=== PATIENT | male | born 1955 | race Caucasian/White ===

== ENCOUNTER 2022-05-04 13:58 | Inpatient (IN) | payer OTHER ==
[~2022-05-04] VITALS: Ht 172.7 cm; Wt 78.7 kg
[~2022-05-04 13:58] MED LIST: 0.9% SODIUM CHLORIDE 10 ML VIAL IVP ONE; DEXAMETHASONE SOD PHOS 4 MG/ML VIAL IVP ONE; EPHEDrine SULFATE 50 MG/ML VIAL IM ONE; LIDOCAINE/PF 2% 5 ML VIAL IM ONE; ONDANSETRON HCL 4 MG/2 ML VIAL IVP ONE; PROPOFOL 1% 20 ML VIAL IVP ONE; ROCURONIUM BROMIDE 10 MG/ML 5 ML VIAL IVP ONE
[2022-05-04] MEDS ORDERED: SODIUM CHLORIDE 0.9% 250 ML IV ONE (15:00)
[2022-05-04] MEDS ORDERED: SODIUM CHLORIDE 0.9% 1,000 ML IV ONE (15:00)
[2022-05-04 15:08] LABS: COVID AG,FIA SOURCE NASOPHARYNGEAL
[2022-05-04 15:52] LABS: BASOPHILS % (AUTO) 0.5 % (0.0-2.0); EOSINOPHILS % (AUTO) 2.3 % (1.0-6.0); HEMATOCRIT 26.1 % (41-53); HEMOGLOBIN 8.4 g/dL (13.5-17.5); LYMPHOCYTES # (AUTO) 0.7 K/uL (1.0-4.8); LYMPHOCYTES % (AUTO) 16.8 % (22.0-44.0); MEAN CORPUSCULAR HEMOGLOBIN 29.8 pg (26.0-34.0); MEAN CORPUSCULAR HGB CONC 32.3 G/dL (31.0-37.0); MEAN CORPUSCULAR VOLUME 92 fL (80-100); MONOCYTES # (AUTO) 0.4 K/uL (0.1-1.0); MONOCYTES % (AUTO) 9.1 % (2.0-9.0); NEUTROPHILS # (AUTO) 3.1 K/uL (1.8-7.7); NEUTROPHILS % (AUTO) 71.3 % (40.0-70.0); PLATELET COUNT (AUTO) 254 K/uL (150-450); RED BLOOD CELL COUNT(AUTO) 2.83 MIL/uL (4.50-5.90); RED CELL DISTRIBUTION WIDTH 20.8 % (11.5-14.5)
[2022-05-04] MEDS ORDERED: VANCOMYCIN HCL 1 GM/VIAL ONE ×2 (15:57→16:30)
[2022-05-04] MEDS ORDERED: SODIUM CL IRRIG SOLN BAG 3,000 ML IRRIG ONE (15:58)
[2022-05-04 16:04] LABS: CALCIUM, TOTAL 7.6 mg/dL (8.8-10.5); CREATININE 3.14 mg/dL (0.60-1.30); POTASSIUM 3.9 mmol/L (3.5-5.1)
[2022-05-04 16:10] LABS: ALBUMIN 1.8 g/dL (3.4-5.0); BILIRUBIN,TOTAL 0.8 mg/dL (0.1-1.0); TOTAL PROTEIN, SERUM 5.5 g/dL (6.4-8.2)
[2022-05-04 16:12] LABS: LACTIC ACID 0.6 mmol/L (0.4-2.0)
[2022-05-04] MEDS ORDERED: MEPERIDINE-PF 25 MG/ML VIAL IVP PRN (16:30)
[2022-05-04] MEDS ORDERED: HYDROmorphone 2 MG/ML VIAL IVP PRN (16:30)
[2022-05-04] MEDS ORDERED: FentaNYL CITRATE PF 100 MCG/2 ML VIAL IVP PRN (16:30)
[2022-05-04 16:36] LABS: INR 1.1 (0.9-1.1); PROTHROMBIN TIME 12.1 SEC (9.4-11.6)
[2022-05-04] MEDS ORDERED: SODIUM CHLORIDE 0.9% 1,000 ML ONE ×3 (17:45→18:13)
[2022-05-04 18:22] VITALS: BP 112/58
[2022-05-04 18:30] VITALS: BP 112/58
[2022-05-04 18:44] VITALS: BP 120/55
[2022-05-04 18:50] VITALS: BP 116/58
[2022-05-04 19:00] VITALS: BP 115/58
[2022-05-04 20:00] VITALS: BP 97/34
[2022-05-04] MEDS ORDERED: RINGERS SOLUTION,LACTATED 1,000 ML IV SCH (20:00)
[2022-05-04] MEDS: OXYGEN THERAPY IH SCH (20:00)
[2022-05-04] MEDS ORDERED: ONDANSETRON HCL 4 MG/2 ML VIAL IVP PRN (20:30)
[2022-05-04] MEDS ORDERED: RINGERS SOLUTION,LACTATED 250 ML IV ONE (20:30)
[2022-05-04] MEDS ORDERED: ASPI81TA87 PO (20:35)
[2022-05-04] MEDS ORDERED: ATOR20TA86 PO (20:35)
[2022-05-04] MEDS ORDERED: METO25 PO (20:35)
[2022-05-04] MEDS ORDERED: NOREPINEPHRINE 8 MG/D5%-WATER 250 ML IV PRN (20:45)
[2022-05-04] MEDS: ACETAMINOPHEN 325 MG TABLET PO PRN (21:27)
[2022-05-04] MEDS: ATORVASTATIN CALCIUM 20 MG TABLET PO SCH (21:27)
[2022-05-04] MEDS: CeFAZolin 2 GM/DEXTROSE 50 ML IV SCH (21:31)
[2022-05-04] MEDS: INSULIN GLARGINE,HUM.REC.ANLOG 100 UNITS/ML SQ SCH (22:02)
[2022-05-04] MEDS: INSULIN LISPRO 100 UNITS/ML SQ PRN (22:02)
[2022-05-04 22:10] LABS: BASOPHILS % (AUTO) 0.1 % (0.0-2.0); EOSINOPHILS % (AUTO) 0.3 % (1.0-6.0); HEMOGLOBIN 9.9 g/dL (13.5-17.5); LYMPHOCYTES # (AUTO) 0.5 K/uL (1.0-4.8); LYMPHOCYTES % (AUTO) 7.4 % (22.0-44.0); MEAN CORPUSCULAR VOLUME 91 fL (80-100); MONOCYTES # (AUTO) 0.2 K/uL (0.1-1.0); MONOCYTES % (AUTO) 2.9 % (2.0-9.0); NEUTROPHILS # (AUTO) 5.9 K/uL (1.8-7.7); PLATELET COUNT (AUTO) 247 K/uL (150-450); RED BLOOD CELL COUNT(AUTO) 3.29 MIL/uL (4.50-5.90); RED CELL DISTRIBUTION WIDTH 19.1 % (11.5-14.5)
[2022-05-04 22:12] LABS: NEUTROPHILS % (AUTO) 89.3 % (40.0-70.0)
[2022-05-04 22:21] LABS: INR 1.3 (0.9-1.1); PROTHROMBIN TIME 13.3 SEC (9.4-11.6)
[2022-05-04 22:23] LABS: ALBUMIN 1.6 g/dL (3.4-5.0); BILIRUBIN,TOTAL 1.2 mg/dL (0.1-1.0); CALCIUM, TOTAL 7.4 mg/dL (8.8-10.5); CREATININE 3.19 mg/dL (0.60-1.30); POTASSIUM 4.3 mmol/L (3.5-5.1); TOTAL PROTEIN, SERUM 5.3 g/dL (6.4-8.2)
[2022-05-04 23:01] LABS: GLUCOSE,POINT OF CARE 224 MG/DL (70-110)
[2022-05-05] VITALS (7 sets, daily range): BP systolic 110–144; BP diastolic 45–77
[2022-05-05] MEDS: HEPARIN SODIUM,PORCINE 5,000 UNITS/ML VIAL SQ SCH ×4 (00:26→23:05)
[2022-05-05] MEDS: ACETAMINOPHEN 325 MG TABLET PO PRN ×3 (04:16→20:42)
[2022-05-05 05:29] LABS: BASOPHILS % (AUTO) 0.1 % (0.0-2.0); EOSINOPHILS % (AUTO) 0 % (1.0-6.0); HEMATOCRIT 29.7 % (41-53); LYMPHOCYTES # (AUTO) 0.9 K/uL (1.0-4.8); LYMPHOCYTES % (AUTO) 10.6 % (22.0-44.0); MEAN CORPUSCULAR HEMOGLOBIN 30.2 pg (26.0-34.0); MEAN CORPUSCULAR HGB CONC 33.7 G/dL (31.0-37.0); MEAN CORPUSCULAR VOLUME 90 fL (80-100); MONOCYTES # (AUTO) 0.5 K/uL (0.1-1.0); MONOCYTES % (AUTO) 6.8 % (2.0-9.0); NEUTROPHILS # (AUTO) 6.6 K/uL (1.8-7.7); NEUTROPHILS % (AUTO) 82.5 % (40.0-70.0); PLATELET COUNT (AUTO) 324 K/uL (150-450); RED BLOOD CELL COUNT(AUTO) 3.31 MIL/uL (4.50-5.90); RED CELL DISTRIBUTION WIDTH 19.8 % (11.5-14.5)
[2022-05-05 05:47] LABS: CALCIUM, TOTAL 7.4 mg/dL (8.8-10.5); CREATININE 3.24 mg/dL (0.60-1.30); MAGNESIUM 1.7 mg/dL (1.80-2.40); PHOSPHORUS 6.1 mg/dL (2.5-4.9); POTASSIUM 4.1 mmol/L (3.5-5.1)
[2022-05-05] MEDS: INSULIN LISPRO 100 UNITS/ML SQ PRN ×4 (06:36→20:50)
[2022-05-05] MEDS: OXYGEN THERAPY IH SCH ×2 (08:00→20:16)
[2022-05-05] MEDS: ASPIRIN 81 MG DR TABLET PO SCH (09:04)
[2022-05-05] MEDS: CeFAZolin 2 GM/DEXTROSE 50 ML IV SCH ×2 (09:04→22:52)
[2022-05-05] MEDS: SODIUM CHLORIDE 0.9% 1,000 ML IV SCH (11:28)
[2022-05-05] MEDS ORDERED: MAGNESIUM OXIDE 400 MG TABLET PO ONE (16:30)
[2022-05-05 18:31] LABS: GLUCOSE,POINT OF CARE 209 MG/DL (70-110)
[2022-05-05 19:00] LABS: GLUCOSE,POINT OF CARE 207 MG/DL (70-110)
[2022-05-05 19:01] LABS: GLUCOSE,POINT OF CARE 214 MG/DL (70-110)
[2022-05-05] MEDS: METOPROLOL TARTRATE 25 MG TABLET PO SCH (20:42)
[2022-05-05] MEDS: ATORVASTATIN CALCIUM 20 MG TABLET PO SCH (20:42)
[2022-05-05] MEDS: INSULIN GLARGINE,HUM.REC.ANLOG 100 UNITS/ML SQ SCH (20:46)
[2022-05-05 21:51] LABS: GLUCOMETER DEV NAME(LOC) 5S.2B; GLUCOSE,POINT OF CARE 201 MG/DL (70-110)
[2022-05-05] MEDS ORDERED: HALOPERIDOL LACTATE 5 MG/ML VIAL IM ONE (23:00)
[2022-05-05] MEDS ORDERED: DiphenhydrAMINE HCL 50 MG/ML VIAL IVP ONE (23:00)
[2022-05-06] VITALS (13 sets, daily range): BP systolic 109–155; BP diastolic 62–88
[2022-05-06] MEDS: ACETAMINOPHEN 325 MG TABLET PO PRN ×3 (02:37→22:27)
[2022-05-06] MEDS ORDERED: DiphenhydrAMINE HCL 50 MG/ML VIAL IVP ONE (03:45)
[2022-05-06 04:36] LABS: APPEARANCE,URINE HAZY (CLEAR); BILIRUBIN,URINE NEGATIVE (NEGATIVE); GLUCOSE, URINE (UA) 70-100 mg/dL (NEGATIVE); KETONES,URINE NEGATIVE (NEGATIVE); LEUKOCYTE ESTERASE ,URINE MODERATE (NEGATIVE); NITRATE,URINE NEGATIVE (NEGATIVE); OCCULT BLOOD,URINE SMALL (NEGATIVE); PROTEIN,URINE 100-200,SEE CONFIRM mg/dL (NEGATIVE); SPECIFIC GRAVITIY, URINE 1.018 (1.003-1.030); UROBILINOGEN,URINE <=1.0 mg/dL (<=1.0)
[2022-05-06 04:41] LABS: CREATININE,URINE RANDOM 89.5 mg/dL (30.0-125.0); PROTEIN,URINE RANDOM 147 mg/dL (0-11.9); SODIUM,URINE RANDOM 20 mmol/l (20-110); UREA NITROGEN,URINE RANDOM 404 mg/dL (350-1000)
[2022-05-06 04:52] LABS: BACTERIA,URINE Few /HPF (None Seen); SULFOSALICYLIC ACID,URINE 2+ (Negative)
[2022-05-06 04:53] LABS: SQUAMOUS EPITHELIAL CELL,UR Few /LPF (None Seen)
[2022-05-06 06:47] LABS: BASOPHILS % (AUTO) 0.3 % (0.0-2.0); EOSINOPHILS % (AUTO) 1.9 % (1.0-6.0); LYMPHOCYTES # (AUTO) 0.8 K/uL (1.0-4.8); LYMPHOCYTES % (AUTO) 13.9 % (22.0-44.0); MEAN CORPUSCULAR HEMOGLOBIN 30.2 pg (26.0-34.0); MEAN CORPUSCULAR VOLUME 89 fL (80-100); MONOCYTES # (AUTO) 0.5 K/uL (0.1-1.0); MONOCYTES % (AUTO) 8.7 % (2.0-9.0); NEUTROPHILS # (AUTO) 4.4 K/uL (1.8-7.7); NEUTROPHILS % (AUTO) 75.2 % (40.0-70.0); PLATELET COUNT (AUTO) 227 K/uL (150-450); RED BLOOD CELL COUNT(AUTO) 2.27 MIL/uL (4.50-5.90); RED CELL DISTRIBUTION WIDTH 19.8 % (11.5-14.5)
[2022-05-06 06:55] LABS: CALCIUM, TOTAL 7.5 mg/dL (8.8-10.5); CREATININE 3.36 mg/dL (0.60-1.30); POTASSIUM 3.8 mmol/L (3.5-5.1)
[2022-05-06 07:06] LABS: HEMOGLOBIN 6.9 g/dL (13.5-17.5)
[2022-05-06 07:07] LABS: HEMATOCRIT 20.2 % (41-53)
[2022-05-06 07:11] LABS: GLUCOMETER DEV NAME(LOC) 5S.2B; GLUCOSE,POINT OF CARE 120 MG/DL (70-110)
[2022-05-06] MEDS: HEPARIN SODIUM,PORCINE 5,000 UNITS/ML VIAL SQ SCH (08:00)
[2022-05-06] MEDS: SODIUM CHLORIDE 0.9% 1,000 ML IV SCH (09:58)
[2022-05-06] MEDS: ASPIRIN 81 MG DR TABLET PO SCH (09:59)
[2022-05-06] MEDS: METOPROLOL TARTRATE 25 MG TABLET PO SCH ×2 (09:59→22:29)
[2022-05-06] MEDS: OXYGEN THERAPY IH SCH ×2 (09:59→19:57)
[2022-05-06] MEDS: CeFAZolin 2 GM/DEXTROSE 50 ML IV SCH ×2 (10:43→22:27)
[2022-05-06] MEDS ORDERED: SODIUM CHLORIDE 0.9% 500 ML IV ONE (11:20)
[2022-05-06 12:42] LABS: BASOPHILS % (AUTO) 0.3 % (0.0-2.0); EOSINOPHILS % (AUTO) 2.7 % (1.0-6.0); LYMPHOCYTES # (AUTO) 0.8 K/uL (1.0-4.8); LYMPHOCYTES % (AUTO) 14.5 % (22.0-44.0); MEAN CORPUSCULAR HEMOGLOBIN 30.2 pg (26.0-34.0); MEAN CORPUSCULAR HGB CONC 33.7 G/dL (31.0-37.0); MEAN CORPUSCULAR VOLUME 90 fL (80-100); MONOCYTES # (AUTO) 0.4 K/uL (0.1-1.0); MONOCYTES % (AUTO) 7.6 % (2.0-9.0); NEUTROPHILS # (AUTO) 3.9 K/uL (1.8-7.7); NEUTROPHILS % (AUTO) 74.9 % (40.0-70.0); PLATELET COUNT (AUTO) 240 K/uL (150-450); RED BLOOD CELL COUNT(AUTO) 2.29 MIL/uL (4.50-5.90); RED CELL DISTRIBUTION WIDTH 19.8 % (11.5-14.5)
[2022-05-06] MEDS: INSULIN LISPRO 100 UNITS/ML SQ PRN ×3 (12:42→22:26)
[2022-05-06 12:46] LABS: HEMATOCRIT 20.5 % (41-53); HEMOGLOBIN 6.9 g/dL (13.5-17.5)
[2022-05-06 21:02] LABS: GLUCOMETER DEV NAME(LOC) 5S.2B; GLUCOSE,POINT OF CARE 190 MG/DL (70-110)
[2022-05-06 21:02] LABS: GLUCOMETER DEV NAME(LOC) 5S.2B; GLUCOSE,POINT OF CARE 241 MG/DL (70-110)
[2022-05-06] MEDS: INSULIN GLARGINE,HUM.REC.ANLOG 100 UNITS/ML SQ SCH (22:24)
[2022-05-06] MEDS: ATORVASTATIN CALCIUM 20 MG TABLET PO SCH (22:27)
[2022-05-06 22:35] LABS: GLUCOMETER DEV NAME(LOC) 5S.2B; GLUCOSE,POINT OF CARE 231 MG/DL (70-110)
[2022-05-07] MEDS: ACETAMINOPHEN 325 MG TABLET PO PRN ×2 (04:50→22:24)
[2022-05-07 04:51] VITALS: BP 155/82
[2022-05-07 05:06] LABS: GLUCOMETER DEV NAME(LOC) 5S.2B; GLUCOSE,POINT OF CARE 71 MG/DL (70-110)
[2022-05-07 07:37] VITALS: BP 153/84
[2022-05-07] MEDS: METOPROLOL TARTRATE 25 MG TABLET PO SCH ×2 (08:13→22:23)
[2022-05-07] MEDS: CeFAZolin 2 GM/DEXTROSE 50 ML IV SCH (08:23)
[2022-05-07] MEDS: OXYGEN THERAPY IH SCH ×2 (08:25→20:00)
[2022-05-07] MEDS ORDERED: FentaNYL CITRATE PF 100 MCG/2 ML VIAL IVP ONE (12:00)
[2022-05-07 13:05] LABS: BASOPHILS % (AUTO) 0.5 % (0.0-2.0); EOSINOPHILS % (AUTO) 3.7 % (1.0-6.0); HEMATOCRIT 24.9 % (41-53); HEMOGLOBIN 8.4 g/dL (13.5-17.5); LYMPHOCYTES # (AUTO) 1.1 K/uL (1.0-4.8); LYMPHOCYTES % (AUTO) 18.1 % (22.0-44.0); MEAN CORPUSCULAR HEMOGLOBIN 30.4 pg (26.0-34.0); MEAN CORPUSCULAR HGB CONC 33.8 G/dL (31.0-37.0); MEAN CORPUSCULAR VOLUME 90 fL (80-100); MONOCYTES # (AUTO) 0.5 K/uL (0.1-1.0); MONOCYTES % (AUTO) 8.6 % (2.0-9.0); NEUTROPHILS # (AUTO) 4.4 K/uL (1.8-7.7); NEUTROPHILS % (AUTO) 69.1 % (40.0-70.0); PLATELET COUNT (AUTO) 256 K/uL (150-450); RED BLOOD CELL COUNT(AUTO) 2.77 MIL/uL (4.50-5.90); RED CELL DISTRIBUTION WIDTH 19.1 % (11.5-14.5)
[2022-05-07 13:13] LABS: CALCIUM, TOTAL 7.7 mg/dL (8.8-10.5); CREATININE 3.04 mg/dL (0.60-1.30); POTASSIUM 4.4 mmol/L (3.5-5.1)
[2022-05-07 13:17] LABS: MAGNESIUM 1.8 mg/dL (1.80-2.40); PHOSPHORUS 4.6 mg/dL (2.5-4.9)
[2022-05-07 13:56] VITALS: BP 158/72
[2022-05-07 15:14] VITALS: BP 171/81
[2022-05-07 15:51] LABS: GLUCOMETER DEV NAME(LOC) 5S.2B; GLUCOSE,POINT OF CARE 65 MG/DL (70-110)
[2022-05-07 15:51] LABS: GLUCOMETER DEV NAME(LOC) 5S.2B; GLUCOSE,POINT OF CARE 67 MG/DL (70-110)
[2022-05-07 15:51] LABS: GLUCOMETER DEV NAME(LOC) 5S.2B; GLUCOSE,POINT OF CARE 116 MG/DL (70-110)
[2022-05-07 16:30] VITALS: BP 155/86
[2022-05-07] MEDS: LEVOFLOXACIN 750 MG TABLET PO SCH (17:30)
[2022-05-07] MEDS: NAFCILLIN SODIUM 2 GM in DEXTROSE 5%-WATER 100 ML IV SCH ×2 (17:39→22:25)
[2022-05-07] MEDS: SODIUM CHLORIDE 0.9% 1,000 ML IV SCH ×2 (17:40→22:58)
[2022-05-07] MEDS: INSULIN LISPRO 100 UNITS/ML SQ PRN (18:38)
[2022-05-07 19:01] LABS: GLUCOMETER DEV NAME(LOC) 5S.2B; GLUCOSE,POINT OF CARE 182 MG/DL (70-110)
[2022-05-07 20:05] VITALS: BP 142/81
[2022-05-07] MEDS: ATORVASTATIN CALCIUM 20 MG TABLET PO SCH (22:24)
[2022-05-07] MEDS: INSULIN GLARGINE,HUM.REC.ANLOG 100 UNITS/ML SQ SCH (22:42)
[2022-05-07 22:46] LABS: GLUCOMETER DEV NAME(LOC) 5S.2B; GLUCOSE,POINT OF CARE 180 MG/DL (70-110)
[2022-05-08] MEDS: NAFCILLIN SODIUM 2 GM in DEXTROSE 5%-WATER 100 ML IV SCH ×6 (02:31→21:01)
[2022-05-08 05:52] LABS: GLUCOMETER DEV NAME(LOC) 5S.2B; GLUCOSE,POINT OF CARE 100 MG/DL (70-110)
[2022-05-08 07:06] LABS: BASOPHILS % (AUTO) 0.5 % (0.0-2.0); EOSINOPHILS % (AUTO) 2.1 % (1.0-6.0); HEMATOCRIT 25.2 % (41-53); HEMOGLOBIN 8.4 g/dL (13.5-17.5); LYMPHOCYTES # (AUTO) 0.9 K/uL (1.0-4.8); LYMPHOCYTES % (AUTO) 15.1 % (22.0-44.0); MEAN CORPUSCULAR HEMOGLOBIN 30.6 pg (26.0-34.0); MEAN CORPUSCULAR HGB CONC 33.5 G/dL (31.0-37.0); MEAN CORPUSCULAR VOLUME 91 fL (80-100); MONOCYTES # (AUTO) 0.3 K/uL (0.1-1.0); MONOCYTES % (AUTO) 6.2 % (2.0-9.0); NEUTROPHILS # (AUTO) 4.3 K/uL (1.8-7.7); NEUTROPHILS % (AUTO) 76.1 % (40.0-70.0); PLATELET COUNT (AUTO) 260 K/uL (150-450); RED BLOOD CELL COUNT(AUTO) 2.76 MIL/uL (4.50-5.90); RED CELL DISTRIBUTION WIDTH 19.4 % (11.5-14.5)
[2022-05-08 07:22] LABS: C-REACTIVE PROTEIN QUANT 9.41 mg/dL (0.00-0.30); CALCIUM, TOTAL 7.7 mg/dL (8.8-10.5); CREATININE 2.68 mg/dL (0.60-1.30); MAGNESIUM 1.8 mg/dL (1.80-2.40); PHOSPHORUS 4.5 mg/dL (2.5-4.9); POTASSIUM 4.4 mmol/L (3.5-5.1)
[2022-05-08 07:51] VITALS: BP 151/82
[2022-05-08] MEDS: METOPROLOL TARTRATE 25 MG TABLET PO SCH ×2 (10:01→20:40)
[2022-05-08] MEDS: OXYGEN THERAPY IH SCH ×2 (10:01→21:09)
[2022-05-08 11:10] VITALS: BP 154/90
[2022-05-08 15:18] VITALS: BP 115/65
[2022-05-08] MEDS: INSULIN LISPRO 100 UNITS/ML SQ PRN ×2 (17:37→20:45)
[2022-05-08 18:11] LABS: GLUCOMETER DEV NAME(LOC) 5S.2B; GLUCOSE,POINT OF CARE 176 MG/DL (70-110)
[2022-05-08 18:11] LABS: GLUCOMETER DEV NAME(LOC) 5S.2B; GLUCOSE,POINT OF CARE 239 MG/DL (70-110)
[2022-05-08 20:17] VITALS: BP 148/87
[2022-05-08] MEDS: ATORVASTATIN CALCIUM 20 MG TABLET PO SCH (20:40)
[2022-05-08] MEDS: ACETAMINOPHEN 325 MG TABLET PO PRN (20:41)
[2022-05-08] MEDS: INSULIN GLARGINE,HUM.REC.ANLOG 100 UNITS/ML SQ SCH (20:45)
[2022-05-08 20:51] LABS: GLUCOMETER DEV NAME(LOC) 5S.2B; GLUCOSE,POINT OF CARE 319 MG/DL (70-110)
[2022-05-08] MEDS: SODIUM CHLORIDE 0.9% 1,000 ML IV SCH (21:00)
[2022-05-09] MEDS: NAFCILLIN SODIUM 2 GM in DEXTROSE 5%-WATER 100 ML IV SCH ×6 (02:18→21:04)
[2022-05-09 07:16] VITALS: BP 135/73
[2022-05-09] MEDS ORDERED: SODIUM CHLORIDE 0.9% 250 ML IV ONE (08:14)
[2022-05-09] MEDS: METOPROLOL TARTRATE 25 MG TABLET PO SCH ×2 (08:42→21:02)
[2022-05-09] MEDS: LEVOFLOXACIN 750 MG TABLET PO SCH (08:42)
[2022-05-09] MEDS: OXYGEN THERAPY IH SCH (08:53)
[2022-05-09 11:14] LABS: BASOPHILS % (AUTO) 0.5 % (0.0-2.0); EOSINOPHILS % (AUTO) 2.8 % (1.0-6.0); HEMATOCRIT 26.6 % (41-53); HEMOGLOBIN 8.9 g/dL (13.5-17.5); LYMPHOCYTES # (AUTO) 0.9 K/uL (1.0-4.8); LYMPHOCYTES % (AUTO) 13.7 % (22.0-44.0); MEAN CORPUSCULAR HEMOGLOBIN 30.5 pg (26.0-34.0); MEAN CORPUSCULAR HGB CONC 33.4 G/dL (31.0-37.0); MEAN CORPUSCULAR VOLUME 91 fL (80-100); MONOCYTES # (AUTO) 0.4 K/uL (0.1-1.0); MONOCYTES % (AUTO) 6.3 % (2.0-9.0); NEUTROPHILS % (AUTO) 76.7 % (40.0-70.0); PLATELET COUNT (AUTO) 270 K/uL (150-450); RED BLOOD CELL COUNT(AUTO) 2.91 MIL/uL (4.50-5.90); RED CELL DISTRIBUTION WIDTH 18.6 % (11.5-14.5)
[2022-05-09 11:55] VITALS: BP 154/77
[2022-05-09 12:35] LABS: COVID AG,FIA SOURCE NASAL SWAB
[2022-05-09 12:36] LABS: ALBUMIN 1.4 g/dL (3.4-5.0); C-REACTIVE PROTEIN QUANT 6.99 mg/dL (0.00-0.30); CALCIUM, TOTAL 7.6 mg/dL (8.8-10.5); CREATININE 2.42 mg/dL (0.60-1.30); TOTAL PROTEIN, SERUM 5.8 g/dL (6.4-8.2)
[2022-05-09 13:59] LABS: POTASSIUM 4.3 mmol/L (3.5-5.1)
[2022-05-09] MEDS ORDERED: CeFAZolin 2 GM/DEXTROSE 50 ML IV SCH (14:00)
[2022-05-09] MEDS ORDERED: NAFCILLIN SODIUM 2 GM in DEXTROSE 5%-WATER 100 ML IV SCH (14:15)
[2022-05-09 16:23] VITALS: BP 145/83
[2022-05-09] MEDS: ATORVASTATIN CALCIUM 20 MG TABLET PO SCH (21:02)
[2022-05-09] MEDS: ACETAMINOPHEN 325 MG TABLET PO PRN (21:03)
[2022-05-09 21:07] VITALS: BP 118/59
[2022-05-09] MEDS: INSULIN GLARGINE,HUM.REC.ANLOG 100 UNITS/ML SQ SCH (21:10)
[2022-05-09] MEDS: INSULIN LISPRO 100 UNITS/ML SQ PRN (21:18)
[2022-05-09 21:31] LABS: GLUCOMETER DEV NAME(LOC) 5S.2B; GLUCOSE,POINT OF CARE 88 MG/DL (70-110)
[2022-05-09 21:31] LABS: GLUCOMETER DEV NAME(LOC) 5S.2B; GLUCOSE,POINT OF CARE 171 MG/DL (70-110)
[2022-05-10] MEDS: NAFCILLIN SODIUM 2 GM in DEXTROSE 5%-WATER 100 ML IV SCH ×6 (01:07→21:04)
[2022-05-10 05:30] VITALS: BP 137/73
[2022-05-10] MEDS: ACETAMINOPHEN 325 MG TABLET PO PRN ×2 (06:02→21:04)
[2022-05-10 06:57] LABS: BASOPHILS % (AUTO) 0.3 % (0.0-2.0); EOSINOPHILS % (AUTO) 1.5 % (1.0-6.0); HEMATOCRIT 26.6 % (41-53); HEMOGLOBIN 8.8 g/dL (13.5-17.5); LYMPHOCYTES # (AUTO) 0.8 K/uL (1.0-4.8); LYMPHOCYTES % (AUTO) 12.1 % (22.0-44.0); MEAN CORPUSCULAR HEMOGLOBIN 30.8 pg (26.0-34.0); MEAN CORPUSCULAR HGB CONC 33.2 G/dL (31.0-37.0); MEAN CORPUSCULAR VOLUME 93 fL (80-100); MONOCYTES # (AUTO) 0.3 K/uL (0.1-1.0); MONOCYTES % (AUTO) 4.4 % (2.0-9.0); NEUTROPHILS # (AUTO) 5.6 K/uL (1.8-7.7); NEUTROPHILS % (AUTO) 81.7 % (40.0-70.0); PLATELET COUNT (AUTO) 242 K/uL (150-450); RED BLOOD CELL COUNT(AUTO) 2.86 MIL/uL (4.50-5.90); RED CELL DISTRIBUTION WIDTH 19.6 % (11.5-14.5)
[2022-05-10 07:19] LABS: CALCIUM, TOTAL 7.7 mg/dL (8.8-10.5); CREATININE 2.32 mg/dL (0.60-1.30); POTASSIUM 4.3 mmol/L (3.5-5.1)
[2022-05-10 07:26] LABS: MAGNESIUM 1.8 mg/dL (1.80-2.40); PHOSPHORUS 4.2 mg/dL (2.5-4.9)
[2022-05-10 08:22] VITALS: BP 139/85
[2022-05-10] MEDS: METOPROLOL TARTRATE 25 MG TABLET PO SCH ×2 (08:42→21:04)
[2022-05-10] MEDS: OXYGEN THERAPY IH SCH ×2 (09:29→19:42)
[2022-05-10] MEDS ORDERED: FUROSEMIDE 40 MG/4 ML VIAL IVP ONE (11:00)
[2022-05-10 12:06] LABS: GLUCOMETER DEV NAME(LOC) 5N.1C; GLUCOSE,POINT OF CARE 136 MG/DL (70-110)
[2022-05-10 12:25] VITALS: BP 143/75
[2022-05-10 15:43] VITALS: BP 146/81
[2022-05-10 16:06] LABS: LEGIONELLA PNEUMO AG URINE Negative (Negative); S PNEUMO SOURCE Urine; STREP PNEUMONIAE AG URINE Negative (Negative)
[2022-05-10 20:36] VITALS: BP 126/90
[2022-05-10] MEDS: ATORVASTATIN CALCIUM 20 MG TABLET PO SCH (21:06)
[2022-05-10] MEDS: INSULIN GLARGINE,HUM.REC.ANLOG 100 UNITS/ML SQ SCH (21:08)
[2022-05-10] MEDS: INSULIN LISPRO 100 UNITS/ML SQ PRN (21:09)
[2022-05-10 22:15] LABS: GLUCOMETER DEV NAME(LOC) 5S.2B; GLUCOSE,POINT OF CARE 272 MG/DL (70-110)
[2022-05-11] MEDS: NAFCILLIN SODIUM 2 GM in DEXTROSE 5%-WATER 100 ML IV SCH ×6 (01:29→22:37)
[2022-05-11 06:41] VITALS: BP 145/85
[2022-05-11 07:00] LABS: C-REACTIVE PROTEIN QUANT 5.97 mg/dL (0.00-0.30); CALCIUM, TOTAL 7.8 mg/dL (8.8-10.5); CREATININE 2.46 mg/dL (0.60-1.30)
[2022-05-11] MEDS: OXYGEN THERAPY IH SCH ×2 (08:00→20:00)
[2022-05-11 08:11] VITALS: BP 156/89
[2022-05-11] MEDS: METOPROLOL TARTRATE 25 MG TABLET PO SCH ×2 (08:34→22:37)
[2022-05-11 10:06] LABS: GLUCOMETER DEV NAME(LOC) 5S.2B; GLUCOSE,POINT OF CARE 133 MG/DL (70-110)
[2022-05-11] MEDS: FUROSEMIDE 40 MG/4 ML VIAL IVP SCH ×2 (10:12→22:37)
[2022-05-11 11:36] VITALS: BP 150/92
[2022-05-11 11:36] LABS: GLUCOMETER DEV NAME(LOC) 5S.2B; GLUCOSE,POINT OF CARE 109 MG/DL (70-110)
[2022-05-11] MEDS: ACETAMINOPHEN 325 MG TABLET PO PRN ×2 (11:57→18:45)
[2022-05-11 15:52] VITALS: BP 141/83
[2022-05-11 18:06] LABS: GLUCOMETER DEV NAME(LOC) 5S.2B; GLUCOSE,POINT OF CARE 176 MG/DL (70-110)
[2022-05-11] MEDS: INSULIN LISPRO 100 UNITS/ML SQ PRN (19:07)
[2022-05-11 19:10] VITALS: BP 144/77
[2022-05-11 20:41] LABS: GLUCOMETER DEV NAME(LOC) 5S.2B; GLUCOSE,POINT OF CARE 187 MG/DL (70-110)
[2022-05-11] MEDS: ATORVASTATIN CALCIUM 20 MG TABLET PO SCH (22:37)
[2022-05-11] MEDS: INSULIN GLARGINE,HUM.REC.ANLOG 100 UNITS/ML SQ SCH (22:38)
[2022-05-11 23:30] VITALS: BP 136/77
[2022-05-12] MEDS: NAFCILLIN SODIUM 2 GM in DEXTROSE 5%-WATER 100 ML IV SCH ×6 (02:57→21:20)
[2022-05-12 04:15] VITALS: BP 129/69
[2022-05-12] MEDS: INSULIN LISPRO 100 UNITS/ML SQ PRN ×4 (05:56→21:17)
[2022-05-12 06:06] LABS: GLUCOMETER DEV NAME(LOC) 5S.2B; GLUCOSE,POINT OF CARE 207 MG/DL (70-110)
[2022-05-12 07:39] LABS: CALCIUM, TOTAL 7.8 mg/dL (8.8-10.5); CREATININE 2.38 mg/dL (0.60-1.30); MAGNESIUM 1.9 mg/dL (1.80-2.40); PHOSPHORUS 4.4 mg/dL (2.5-4.9); POTASSIUM 3.7 mmol/L (3.5-5.1)
[2022-05-12] MEDS: OXYGEN THERAPY IH SCH ×2 (08:00→20:00)
[2022-05-12 08:36] VITALS: BP 139/79
[2022-05-12] MEDS: ACETAMINOPHEN 325 MG TABLET PO PRN (09:00)
[2022-05-12] MEDS: METOPROLOL TARTRATE 25 MG TABLET PO SCH ×2 (09:01→21:20)
[2022-05-12] MEDS: FUROSEMIDE 40 MG/4 ML VIAL IVP SCH (09:01)
[2022-05-12] MEDS: MULTIVITAMINS WITH MINERALS, THERAPEUTIC TABLET PO SCH (09:01)
[2022-05-12 11:51] LABS: GLUCOMETER DEV NAME(LOC) 5N.1C; GLUCOSE,POINT OF CARE 159 MG/DL (70-110)
[2022-05-12 12:39] VITALS: BP 134/67
[2022-05-12 15:40] LABS: BASOPHILS % (AUTO) 0.6 % (0.0-2.0); EOSINOPHILS % (AUTO) 1.9 % (1.0-6.0); HEMATOCRIT 23.7 % (41-53); HEMOGLOBIN 7.8 g/dL (13.5-17.5); LYMPHOCYTES # (AUTO) 1.2 K/uL (1.0-4.8); LYMPHOCYTES % (AUTO) 15.3 % (22.0-44.0); MEAN CORPUSCULAR HEMOGLOBIN 30.4 pg (26.0-34.0); MEAN CORPUSCULAR HGB CONC 32.9 G/dL (31.0-37.0); MEAN CORPUSCULAR VOLUME 92 fL (80-100); MONOCYTES # (AUTO) 0.4 K/uL (0.1-1.0); MONOCYTES % (AUTO) 5.3 % (2.0-9.0); NEUTROPHILS # (AUTO) 5.9 K/uL (1.8-7.7); NEUTROPHILS % (AUTO) 76.9 % (40.0-70.0); PLATELET COUNT (AUTO) 261 K/uL (150-450); RED BLOOD CELL COUNT(AUTO) 2.57 MIL/uL (4.50-5.90); RED CELL DISTRIBUTION WIDTH 19.9 % (11.5-14.5)
[2022-05-12 16:05] VITALS: BP 126/86
[2022-05-12 17:22] LABS: GLUCOMETER DEV NAME(LOC) 5S.1B; GLUCOSE,POINT OF CARE 188 MG/DL (70-110)
[2022-05-12 20:41] LABS: GLUCOMETER DEV NAME(LOC) 5S.1B; GLUCOSE,POINT OF CARE 162 MG/DL (70-110)
[2022-05-12 21:03] VITALS: BP 148/81
[2022-05-12] MEDS: ATORVASTATIN CALCIUM 20 MG TABLET PO SCH (21:20)
[2022-05-12] MEDS: INSULIN GLARGINE,HUM.REC.ANLOG 100 UNITS/ML SQ SCH (21:20)
[2022-05-13 00:08] VITALS: BP 143/83
[2022-05-13] MEDS: NAFCILLIN SODIUM 2 GM in DEXTROSE 5%-WATER 100 ML IV SCH ×6 (01:46→22:31)
[2022-05-13 05:10] VITALS: BP 132/54
[2022-05-13] MEDS: DEXTROSE 50%-WATER 25 GM/50 ML SYRINGE IVP PRN (05:51)
[2022-05-13 06:22] LABS: GLUCOMETER DEV NAME(LOC) 5S.1B; GLUCOSE,POINT OF CARE 53 MG/DL (70-110)
[2022-05-13 07:09] LABS: ALBUMIN 1.1 g/dL (3.4-5.0); BILIRUBIN,TOTAL 1.2 mg/dL (0.1-1.0); C-REACTIVE PROTEIN QUANT 3.78 mg/dL (0.00-0.30); CALCIUM, TOTAL 7.1 mg/dL (8.8-10.5); CREATININE 2.32 mg/dL (0.60-1.30); TOTAL PROTEIN, SERUM 5.2 g/dL (6.4-8.2)
[2022-05-13 07:52] LABS: POTASSIUM 2.7 mmol/L (3.5-5.1)
[2022-05-13] MEDS: OXYGEN THERAPY IH SCH ×3 (08:00→22:00)
[2022-05-13] MEDS ORDERED: POTASSIUM CHLORIDE 20 MEQ ER TABLET PO ONE (08:15)
[2022-05-13 08:28] LABS: BASOPHILS % (AUTO) 0.8 % (0.0-2.0); EOSINOPHILS % (AUTO) 2.9 % (1.0-6.0); HEMATOCRIT 21.3 % (41-53); LYMPHOCYTES % (AUTO) 16.2 % (22.0-44.0); MEAN CORPUSCULAR HEMOGLOBIN 30.7 pg (26.0-34.0); MEAN CORPUSCULAR HGB CONC 32.9 G/dL (31.0-37.0); MEAN CORPUSCULAR VOLUME 93 fL (80-100); MONOCYTES # (AUTO) 0.3 K/uL (0.1-1.0); MONOCYTES % (AUTO) 4.8 % (2.0-9.0); NEUTROPHILS # (AUTO) 4.5 K/uL (1.8-7.7); NEUTROPHILS % (AUTO) 75.3 % (40.0-70.0); PLATELET COUNT (AUTO) 223 K/uL (150-450); RED BLOOD CELL COUNT(AUTO) 2.29 MIL/uL (4.50-5.90); RED CELL DISTRIBUTION WIDTH 19.6 % (11.5-14.5)
[2022-05-13] MEDS: FUROSEMIDE 40 MG TABLET PO SCH (08:31)
[2022-05-13] MEDS: MULTIVITAMINS WITH MINERALS, THERAPEUTIC TABLET PO SCH (08:32)
[2022-05-13] MEDS: METOPROLOL TARTRATE 25 MG TABLET PO SCH ×2 (08:32→21:43)
[2022-05-13] MEDS: ACETAMINOPHEN 325 MG TABLET PO PRN ×2 (08:35→13:21)
[2022-05-13 08:36] VITALS: BP 145/76
[2022-05-13 09:31] LABS: GLUCOMETER DEV NAME(LOC) 5N.1C; GLUCOSE,POINT OF CARE 115 MG/DL (70-110)
[2022-05-13 12:01] LABS: GLUCOMETER DEV NAME(LOC) 5S.1B; GLUCOSE,POINT OF CARE 89 MG/DL (70-110)
[2022-05-13 12:25] VITALS: BP_SYST 14; BP_SYST 148; BP_DIAS 67
[2022-05-13 16:29] VITALS: BP 169/80
[2022-05-13 16:42] LABS: GLUCOMETER DEV NAME(LOC) 5N.1C; GLUCOSE,POINT OF CARE 135 MG/DL (70-110)
[2022-05-13 20:27] VITALS: BP 146/72
[2022-05-13] MEDS: INSULIN GLARGINE,HUM.REC.ANLOG 100 UNITS/ML SQ SCH (21:00)
[2022-05-13] MEDS: ATORVASTATIN CALCIUM 20 MG TABLET PO SCH (21:13)
[2022-05-13 23:21] LABS: GLUCOMETER DEV NAME(LOC) 5S.1B; GLUCOSE,POINT OF CARE 187 MG/DL (70-110)
[2022-05-14 00:22] VITALS: BP 136/65
[2022-05-14] MEDS: NAFCILLIN SODIUM 2 GM in DEXTROSE 5%-WATER 100 ML IV SCH ×6 (02:30→21:36)
[2022-05-14 04:22] VITALS: BP 135/74
[2022-05-14 06:06] LABS: GLUCOMETER DEV NAME(LOC) 5S.1B; GLUCOSE,POINT OF CARE 207 MG/DL (70-110)
[2022-05-14 06:10] LABS: BASOPHILS % (AUTO) 0.6 % (0.0-2.0); HEMATOCRIT 24.7 % (41-53); HEMOGLOBIN 8.1 g/dL (13.5-17.5); LYMPHOCYTES # (AUTO) 0.8 K/uL (1.0-4.8); LYMPHOCYTES % (AUTO) 12.4 % (22.0-44.0); MEAN CORPUSCULAR HEMOGLOBIN 30.4 pg (26.0-34.0); MEAN CORPUSCULAR VOLUME 92 fL (80-100); MONOCYTES # (AUTO) 0.3 K/uL (0.1-1.0); MONOCYTES % (AUTO) 4.7 % (2.0-9.0); NEUTROPHILS # (AUTO) 5.4 K/uL (1.8-7.7); NEUTROPHILS % (AUTO) 81.3 % (40.0-70.0); PLATELET COUNT (AUTO) 225 K/uL (150-450); RED BLOOD CELL COUNT(AUTO) 2.68 MIL/uL (4.50-5.90)
[2022-05-14] MEDS: INSULIN LISPRO 100 UNITS/ML SQ PRN ×4 (06:11→21:48)
[2022-05-14 06:30] LABS: ALBUMIN 1.3 g/dL (3.4-5.0); BILIRUBIN,TOTAL 1.5 mg/dL (0.1-1.0); CALCIUM, TOTAL 7.5 mg/dL (8.8-10.5); CREATININE 2.44 mg/dL (0.60-1.30); POTASSIUM 3.5 mmol/L (3.5-5.1); TOTAL PROTEIN, SERUM 5.9 g/dL (6.4-8.2)
[2022-05-14 08:00] VITALS: BP 131/68
[2022-05-14] MEDS: POTASSIUM CHLORIDE 20 MEQ ER TABLET PO SCH (09:36)
[2022-05-14] MEDS: METOPROLOL TARTRATE 25 MG TABLET PO SCH ×2 (09:36→21:36)
[2022-05-14] MEDS: FUROSEMIDE 40 MG TABLET PO SCH (09:36)
[2022-05-14] MEDS: MULTIVITAMINS WITH MINERALS, THERAPEUTIC TABLET PO SCH (09:37)
[2022-05-14] MEDS: ACETAMINOPHEN 325 MG TABLET PO PRN (09:37)
[2022-05-14] MEDS ORDERED: FUROSEMIDE 40 MG/4 ML VIAL IVP SCH (10:15)
[2022-05-14 11:00] VITALS: BP 123/58
[2022-05-14 12:07] LABS: GLUCOMETER DEV NAME(LOC) 5S.1B; GLUCOSE,POINT OF CARE 277 MG/DL (70-110)
[2022-05-14 15:29] VITALS: BP 124/56
[2022-05-14 20:15] VITALS: BP 147/71
[2022-05-14 20:46] LABS: GLUCOMETER DEV NAME(LOC) 5S.1B; GLUCOSE,POINT OF CARE 273 MG/DL (70-110)
[2022-05-14] MEDS: ATORVASTATIN CALCIUM 20 MG TABLET PO SCH (21:35)
[2022-05-14] MEDS: INSULIN GLARGINE,HUM.REC.ANLOG 100 UNITS/ML SQ SCH (21:49)
[2022-05-14 22:22] LABS: GLUCOMETER DEV NAME(LOC) 5S.1B; GLUCOSE,POINT OF CARE 189 MG/DL (70-110)
[2022-05-15 00:08] VITALS: BP 134/63
[2022-05-15] MEDS: NAFCILLIN SODIUM 2 GM in DEXTROSE 5%-WATER 100 ML IV SCH ×6 (02:00→23:01)
[2022-05-15 04:25] VITALS: BP 149/78
[2022-05-15 06:31] LABS: GLUCOMETER DEV NAME(LOC) 5S.1B; GLUCOSE,POINT OF CARE 41 MG/DL (70-110)
[2022-05-15 06:51] LABS: GLUCOMETER DEV NAME(LOC) 5S.1B; GLUCOSE,POINT OF CARE 44 MG/DL (70-110)
[2022-05-15 06:56] LABS: HEMOGLOBIN A1C 7.6 % (3.8-5.6)
[2022-05-15 07:00] LABS: ALBUMIN 1.3 g/dL (3.4-5.0); BILIRUBIN,TOTAL 1.2 mg/dL (0.1-1.0); C-REACTIVE PROTEIN QUANT 4.81 mg/dL (0.00-0.30); CALCIUM, TOTAL 7.6 mg/dL (8.8-10.5); CREATININE 2.38 mg/dL (0.60-1.30); POTASSIUM 3.3 mmol/L (3.5-5.1); TOTAL PROTEIN, SERUM 5.9 g/dL (6.4-8.2)
[2022-05-15 07:32] VITALS: BP_SYST 110; BP_SYST 117; BP_DIAS 79; BP_DIAS 80
[2022-05-15 08:43] LABS: BASOPHILS % (AUTO) 0.8 % (0.0-2.0); EOSINOPHILS % (AUTO) 3.3 % (1.0-6.0); LYMPHOCYTES % (AUTO) 14.5 % (22.0-44.0); MEAN CORPUSCULAR HEMOGLOBIN 30.4 pg (26.0-34.0); MEAN CORPUSCULAR HGB CONC 33.3 G/dL (31.0-37.0); MEAN CORPUSCULAR VOLUME 91 fL (80-100); MONOCYTES # (AUTO) 0.4 K/uL (0.1-1.0); MONOCYTES % (AUTO) 5.2 % (2.0-9.0); NEUTROPHILS # (AUTO) 5.5 K/uL (1.8-7.7); NEUTROPHILS % (AUTO) 76.2 % (40.0-70.0); PLATELET COUNT (AUTO) 210 K/uL (150-450); RED BLOOD CELL COUNT(AUTO) 2.17 MIL/uL (4.50-5.90); RED CELL DISTRIBUTION WIDTH 19.5 % (11.5-14.5)
[2022-05-15] MEDS ORDERED: SODIUM CHLORIDE 0.9% 500 ML IV ONE (08:45)
[2022-05-15 08:49] LABS: HEMATOCRIT 19.7 % (41-53); HEMOGLOBIN 6.6 g/dL (13.5-17.5)
[2022-05-15] MEDS: MULTIVITAMINS WITH MINERALS, THERAPEUTIC TABLET PO SCH (09:00)
[2022-05-15] MEDS: POTASSIUM CHLORIDE 20 MEQ ER TABLET PO SCH (09:00)
[2022-05-15] MEDS: METOPROLOL TARTRATE 25 MG TABLET PO SCH ×2 (09:00→20:43)
[2022-05-15 09:06] LABS: GLUCOSE,POINT OF CARE 63 MG/DL (70-110)
[2022-05-15] MEDS ORDERED: IOHEXOL 350 MG/ML 100 ML VIAL ONE (09:19)
[2022-05-15] MEDS ORDERED: SODIUM CHLORIDE 0.9% 100 ML ONE (09:19)
[2022-05-15] MEDS ORDERED: DEXTROSE 5%-0.9% SODIUM CHL 1,000 ML IV SCH (10:15)
[2022-05-15] MEDS ORDERED: VANCOMYCIN HCL 1 GM/VIAL ONE ×3 (10:39→12:26)
[2022-05-15] MEDS ORDERED: SODIUM CL IRRIG SOLN BAG 6,000 ML IRRIG ONE (10:39)
[2022-05-15 10:49] LABS: INR 1.2 (0.9-1.1)
[2022-05-15] MEDS ORDERED: SODIUM CHLORIDE 0.9% 250 ML IV ONE (10:51)
[2022-05-15] MEDS ORDERED: HydrALAZINE HCL 20 MG/ML VIAL IVP PRN (11:00)
[2022-05-15 11:19] VITALS: BP 145/87
[2022-05-15] MEDS ORDERED: SUGAMMADEX SODIUM 200 MG/2 ML VIAL IVP ONE (11:42)
[2022-05-15] MEDS ORDERED: SODIUM CHLORIDE 0.9% 1,000 ML ONE (11:45)
[2022-05-15] MEDS ORDERED: SODIUM CL IRRIG SOLN BAG 3,000 ML IRRIG ONE (12:26)
[2022-05-15] MEDS ORDERED: FentaNYL CITRATE PF 100 MCG/2 ML VIAL IVP PRN (13:00)
[2022-05-15 15:51] LABS: GLUCOSE,POINT OF CARE 116 MG/DL (70-110)
[2022-05-15 16:00] VITALS: BP 152/87
[2022-05-15 17:10] LABS: GLUCOSE,POINT OF CARE 135 MG/DL (70-110)
[2022-05-15 20:00] VITALS: BP 122/81
[2022-05-15] MEDS: OXYGEN THERAPY IH SCH (20:00)
[2022-05-15] MEDS: ATORVASTATIN CALCIUM 20 MG TABLET PO SCH (20:43)
[2022-05-15] MEDS: INSULIN GLARGINE,HUM.REC.ANLOG 100 UNITS/ML SQ SCH (20:46)
[2022-05-15] MEDS: INSULIN LISPRO 100 UNITS/ML SQ PRN (20:47)
[2022-05-15] MEDS: MORPHINE SULFATE 2 MG/ML SYRINGE IVP PRN ×2 (20:51→23:02)
[2022-05-15 21:41] LABS: GLUCOSE,POINT OF CARE 195 MG/DL (70-110)
[2022-05-16] VITALS (18 sets, daily range): BP systolic 114–176; BP diastolic 43–94
[2022-05-16] MEDS: MORPHINE SULFATE 2 MG/ML SYRINGE IVP PRN ×2 (01:24→08:53)
[2022-05-16] MEDS: NAFCILLIN SODIUM 2 GM in DEXTROSE 5%-WATER 100 ML IV SCH ×6 (01:24→21:05)
[2022-05-16] MEDS ORDERED: LIDOCAINE/PF 2% 5 ML VIAL IM ONE (01:44)
[2022-05-16] MEDS ORDERED: 0.9% SODIUM CHLORIDE 10 ML VIAL IVP ONE (01:44)
[2022-05-16] MEDS ORDERED: EPHEDrine SULFATE 50 MG/ML VIAL IM ONE (01:44)
[2022-05-16] MEDS ORDERED: PROPOFOL 1% 20 ML VIAL IVP ONE (01:44)
[2022-05-16] MEDS ORDERED: ROCURONIUM BROMIDE 10 MG/ML 5 ML VIAL IVP ONE (01:44)
[2022-05-16] MEDS ORDERED: FentaNYL CITRATE PF 100 MCG/2 ML VIAL IVP ONE (01:44)
[2022-05-16 05:23] LABS: BASOPHILS % (AUTO) 0.4 % (0.0-2.0); EOSINOPHILS % (AUTO) 0.8 % (1.0-6.0); LYMPHOCYTES # (AUTO) 0.9 K/uL (1.0-4.8); LYMPHOCYTES % (AUTO) 14.8 % (22.0-44.0); MEAN CORPUSCULAR HEMOGLOBIN 31.4 pg (26.0-34.0); MEAN CORPUSCULAR HGB CONC 34.5 G/dL (31.0-37.0); MEAN CORPUSCULAR VOLUME 91 fL (80-100); MONOCYTES # (AUTO) 0.4 K/uL (0.1-1.0); MONOCYTES % (AUTO) 5.6 % (2.0-9.0); NEUTROPHILS % (AUTO) 78.4 % (40.0-70.0); PLATELET COUNT (AUTO) 143 K/uL (150-450); RED BLOOD CELL COUNT(AUTO) 1.58 MIL/uL (4.50-5.90); RED CELL DISTRIBUTION WIDTH 18.1 % (11.5-14.5)
[2022-05-16 05:29] LABS: ALBUMIN 1.2 g/dL (3.4-5.0); BILIRUBIN,TOTAL 1.4 mg/dL (0.1-1.0); CALCIUM, TOTAL 7.2 mg/dL (8.8-10.5); CREATININE 2.61 mg/dL (0.60-1.30); POTASSIUM 3.5 mmol/L (3.5-5.1)
[2022-05-16 05:38] LABS: HEMATOCRIT 14.3 % (41-53); HEMOGLOBIN 4.9 g/dL (13.5-17.5)
[2022-05-16] MEDS ORDERED: FUROSEMIDE 20 MG/2 ML VIAL IVP ONE (06:30)
[2022-05-16] MEDS ORDERED: SODIUM CHLORIDE 0.9% 500 ML IV ONE (06:32)
[2022-05-16 06:56] LABS: GLUCOSE,POINT OF CARE 126 MG/DL (70-110)
[2022-05-16] MEDS: OXYGEN THERAPY IH SCH (08:00)
[2022-05-16] MEDS: MULTIVITAMINS WITH MINERALS, THERAPEUTIC TABLET PO SCH (08:54)
[2022-05-16] MEDS: POTASSIUM CHLORIDE 20 MEQ ER TABLET PO SCH (08:54)
[2022-05-16] MEDS: METOPROLOL TARTRATE 25 MG TABLET PO SCH ×2 (08:54→21:01)
[2022-05-16 14:11] LABS: GLUCOSE,POINT OF CARE 104 MG/DL (70-110)
[2022-05-16 15:28] LABS: EOSINOPHILS % (AUTO) 1.9 % (1.0-6.0); HEMATOCRIT 21.8 % (41-53); HEMOGLOBIN 7.4 g/dL (13.5-17.5); LYMPHOCYTES # (AUTO) 0.9 K/uL (1.0-4.8); LYMPHOCYTES % (AUTO) 15.3 % (22.0-44.0); MEAN CORPUSCULAR HEMOGLOBIN 30.4 pg (26.0-34.0); MEAN CORPUSCULAR HGB CONC 33.7 G/dL (31.0-37.0); MEAN CORPUSCULAR VOLUME 90 fL (80-100); MONOCYTES # (AUTO) 0.3 K/uL (0.1-1.0); MONOCYTES % (AUTO) 4.8 % (2.0-9.0); NEUTROPHILS # (AUTO) 4.3 K/uL (1.8-7.7); PLATELET COUNT (AUTO) 129 K/uL (150-450); RED BLOOD CELL COUNT(AUTO) 2.42 MIL/uL (4.50-5.90); RED CELL DISTRIBUTION WIDTH 20.1 % (11.5-14.5)
[2022-05-16] MEDS: ATORVASTATIN CALCIUM 20 MG TABLET PO SCH (21:01)
[2022-05-16] MEDS: INSULIN GLARGINE,HUM.REC.ANLOG 100 UNITS/ML SQ SCH (21:03)
[2022-05-16] MEDS: INSULIN LISPRO 100 UNITS/ML SQ PRN (21:04)
[2022-05-16 22:36] LABS: GLUCOSE,POINT OF CARE 149 MG/DL (70-110)
[2022-05-17] VITALS (8 sets, daily range): BP systolic 114–195; BP diastolic 60–81
[2022-05-17] MEDS: MORPHINE SULFATE 2 MG/ML SYRINGE IVP PRN ×2 (00:30→12:13)
[2022-05-17] MEDS: NAFCILLIN SODIUM 2 GM in DEXTROSE 5%-WATER 100 ML IV SCH ×6 (02:14→20:32)
[2022-05-17] MEDS ORDERED: SODIUM CHLORIDE 0.9% 250 ML IV ONE (02:16)
[2022-05-17 06:06] LABS: ALBUMIN URINE (ELP) 48.2 %
[2022-05-17 07:02] LABS: BASOPHILS % (AUTO) 1.1 % (0.0-2.0); EOSINOPHILS % (AUTO) 1.5 % (1.0-6.0); HEMATOCRIT 21.5 % (41-53); HEMOGLOBIN 7.3 g/dL (13.5-17.5); LYMPHOCYTES % (AUTO) 15.9 % (22.0-44.0); MEAN CORPUSCULAR HEMOGLOBIN 30.7 pg (26.0-34.0); MEAN CORPUSCULAR VOLUME 90 fL (80-100); MONOCYTES # (AUTO) 0.3 K/uL (0.1-1.0); MONOCYTES % (AUTO) 5.1 % (2.0-9.0); NEUTROPHILS # (AUTO) 4.6 K/uL (1.8-7.7); NEUTROPHILS % (AUTO) 76.4 % (40.0-70.0); PLATELET COUNT (AUTO) 139 K/uL (150-450); RED BLOOD CELL COUNT(AUTO) 2.38 MIL/uL (4.50-5.90); RED CELL DISTRIBUTION WIDTH 19.7 % (11.5-14.5)
[2022-05-17 07:19] LABS: ALBUMIN 1.1 g/dL (3.4-5.0); BILIRUBIN,TOTAL 1.7 mg/dL (0.1-1.0); C-REACTIVE PROTEIN QUANT 8.32 mg/dL (0.00-0.30); CALCIUM, TOTAL 7.2 mg/dL (8.8-10.5); CREATININE 2.77 mg/dL (0.60-1.30); POTASSIUM 3.5 mmol/L (3.5-5.1); TOTAL PROTEIN, SERUM 5.3 g/dL (6.4-8.2)
[2022-05-17] MEDS: METOPROLOL TARTRATE 25 MG TABLET PO SCH ×2 (08:42→20:37)
[2022-05-17] MEDS: MULTIVITAMINS WITH MINERALS, THERAPEUTIC TABLET PO SCH (08:42)
[2022-05-17] MEDS: POTASSIUM CHLORIDE 20 MEQ ER TABLET PO SCH (08:43)
[2022-05-17] MEDS ORDERED: FUROSEMIDE 40 MG/4 ML VIAL IVP SCH (09:00)
[2022-05-17] MEDS: ACETAMINOPHEN 325 MG TABLET PO PRN (16:12)
[2022-05-17] MEDS: INSULIN LISPRO 100 UNITS/ML SQ PRN ×2 (18:41→20:35)
[2022-05-17] MEDS: INSULIN GLARGINE,HUM.REC.ANLOG 100 UNITS/ML SQ SCH (20:35)
[2022-05-17] MEDS: ATORVASTATIN CALCIUM 20 MG TABLET PO SCH (20:37)
[2022-05-17 21:52] LABS: GLUCOMETER DEV NAME(LOC) 5N.1C; GLUCOSE,POINT OF CARE 186 MG/DL (70-110)
[2022-05-18 00:13] LABS: BASOPHILS % (AUTO) 0.7 % (0.0-2.0); EOSINOPHILS % (AUTO) 0.7 % (1.0-6.0); HEMATOCRIT 26.2 % (41-53); HEMOGLOBIN 8.7 g/dL (13.5-17.5); LYMPHOCYTES # (AUTO) 3.1 K/uL (1.0-4.8); LYMPHOCYTES % (AUTO) 20.5 % (22.0-44.0); MEAN CORPUSCULAR HEMOGLOBIN 30.4 pg (26.0-34.0); MEAN CORPUSCULAR VOLUME 92 fL (80-100); MONOCYTES # (AUTO) 0.4 K/uL (0.1-1.0); MONOCYTES % (AUTO) 2.9 % (2.0-9.0); NEUTROPHILS # (AUTO) 11.4 K/uL (1.8-7.7); NEUTROPHILS % (AUTO) 75.2 % (40.0-70.0); PLATELET COUNT (AUTO) 200 K/uL (150-450); RED BLOOD CELL COUNT(AUTO) 2.85 MIL/uL (4.50-5.90); RED CELL DISTRIBUTION WIDTH 20.1 % (11.5-14.5)
[2022-05-18 00:27] LABS: ANION GAP 11 mmol/L (8-16); CALCIUM, TOTAL 7.5 mg/dL (8.8-10.5); CARBON DIOXIDE 24 mmol/L (22-29); CHLORIDE 99 mmol/L (98-107); CREATININE 3.05 mg/dL (0.60-1.30); GLUCOSE,RANDOM 152 mg/dL (70-110); POTASSIUM 4.1 mmol/L (3.5-5.1); SODIUM SERUM 134 mmol/L (136-145); UREA NITROGEN, BLOOD 77 mg/dL (7-18)
[2022-05-18 00:28] LABS: GLOMERULAR FILTR. RATE CALC 21 mL/min (>60)
[2022-05-18 00:32] LABS: ALANINE AMINOTRANSFERASE 3 U/L (12-78); ALBUMIN 1.3 g/dL (3.4-5.0); ALKALINE PHOSPHATASE 81 U/L (46-116); ASPARTATE AMINOTRANSFERASE 30 U/L (15-37); BILIRUBIN,TOTAL 2.1 mg/dL (0.1-1.0); TOTAL PROTEIN, SERUM 6.2 g/dL (6.4-8.2)
[2022-05-18 00:43] LABS: LACTIC ACID 3.7 mmol/L (0.4-2.0)
[2022-05-18] MEDS: NAFCILLIN SODIUM 2 GM in DEXTROSE 5%-WATER 100 ML IV SCH ×4 (02:00→14:41)
[2022-05-18 02:26] LABS: ABG BASE EXCESS -3.2 mmol/L (-2.0-3.0); ABG CARBOXYHEMOGLOBIN 0.6 % (0.0-1.5); ABG HCO3 22.2 mmol/L (22.0-26.0); ABG METHEMOGLOBIN 0.3 % (0.0-1.5); ABG OXYGEN CONTENT 12.6 mL/dL (15.0-23.0); ABG OXYGEN SATURATION 99.5 % (95.0-98.0); ABG OXYHEMOGLOBIN 98.6 % (94.0-100.0); ABG PCO2 33 mmHg (35-45); ABG TOTAL HEMOGLOBIN 8.4 G/dL (12.0-18.0); O2 DEVICE,BLOOD GAS VENTILATOR (ROOM AIR); PO2, ARTERIAL BG 340.8 mmHg (79.0-87.0); SITE, BLOOD GAS RT RADIAL; SOURCE, BLOOD GAS ARTERIAL; TEMPERATURE, FAHRENHEIT, BG 98.6 FAHREN (96.0-98.6)
[2022-05-18 02:27] LABS: PEEP,BG 5 cm H2O; VT, ABG 450 ml
[2022-05-18] MEDS: FentaNYL CIT 1000MCG/0.9% NACL 100 ML IV PRN ×3 (02:33→23:42)
[2022-05-18] MEDS ORDERED: SODIUM CHLORIDE 0.9% 250 ML IV ONE (02:48)
[2022-05-18 04:00] VITALS: BP 124/93
[2022-05-18 07:01] LABS: GLUCOSE,POINT OF CARE 81 MG/DL (70-110)
[2022-05-18 08:00] VITALS: BP 103/63
[2022-05-18 08:17] LABS: ALBUMIN 1.3 g/dL (3.4-5.0); BILIRUBIN,TOTAL 2.5 mg/dL (0.1-1.0); C-REACTIVE PROTEIN QUANT 11.14 mg/dL (0.00-0.30); CALCIUM, TOTAL 7.8 mg/dL (8.8-10.5); CREATININE 3.01 mg/dL (0.60-1.30); POTASSIUM 4.6 mmol/L (3.5-5.1); TOTAL PROTEIN, SERUM 6.6 g/dL (6.4-8.2)
[2022-05-18] MEDS: MULTIVITAMINS WITH MINERALS, THERAPEUTIC TABLET PO SCH (08:48)
[2022-05-18] MEDS: METOPROLOL TARTRATE 25 MG TABLET PO SCH ×2 (08:48→20:26)
[2022-05-18] MEDS: POTASSIUM CHLORIDE 20 MEQ ER TABLET PO SCH (08:48)
[2022-05-18] MEDS: ETHYL ALCOHOL 62% ANTISEPTIC NASAL SANITIZER 0.6 ML AMPUL NASAL SCH ×2 (08:53→20:26)
[2022-05-18] MEDS: FUROSEMIDE 20 MG/2 ML VIAL IVP SCH ×2 (08:53→09:00)
[2022-05-18] MEDS ORDERED: SODIUM CHLORIDE 0.9% 500 ML IV ONE (10:10)
[2022-05-18] MEDS ORDERED: NOREPINEPHRINE 8 MG/D5%-WATER 250 ML IV PRN (11:15)
[2022-05-18] MEDS ORDERED: VASOPRESSIN 40 UNITS in DEXTROSE 5%-WATER 98 ML IV PRN (11:15)
[2022-05-18] MEDS: ALBUMIN HUMAN 25%-25GM/100ML 100 ML IV SCH ×2 (11:17→21:40)
[2022-05-18 11:31] LABS: GLUCOMETER DEV NAME(LOC) 5N.3; GLUCOSE,POINT OF CARE 177 MG/DL (70-110)
[2022-05-18 11:31] LABS: GLUCOMETER DEV NAME(LOC) 5N.3; GLUCOSE,POINT OF CARE 114 MG/DL (70-110)
[2022-05-18 11:31] LABS: GLUCOMETER DEV NAME(LOC) 5N.3; GLUCOSE,POINT OF CARE 135 MG/DL (70-110)
[2022-05-18 11:32] LABS: GLUCOMETER DEV NAME(LOC) 5N.3; GLUCOSE,POINT OF CARE 107 MG/DL (70-110)
[2022-05-18 11:33] LABS: ABG BASE EXCESS -2.5 mmol/L (-2.0-3.0); ABG CARBOXYHEMOGLOBIN 0.4 % (0.0-1.5); ABG HCO3 22.6 mmol/L (22.0-26.0); ABG METHEMOGLOBIN 0.3 % (0.0-1.5); ABG OXYGEN CONTENT 12.4 mL/dL (15.0-23.0); ABG OXYGEN SATURATION 96.8 % (95.0-98.0); ABG OXYHEMOGLOBIN 96.1 % (94.0-100.0); ABG PCO2 33 mmHg (35-45); ABG PH 7.441 (7.35-7.450); ABG TOTAL HEMOGLOBIN 9.1 G/dL (12.0-18.0); PO2, ARTERIAL BG 74.3 mmHg (79.0-87.0); SOURCE, BLOOD GAS ARTERIAL
[2022-05-18 11:38] LABS: ABG A-A DIFF O2 176.5 mmHg (10-20.0); O2 DEVICE,BLOOD GAS VENTILATOR (ROOM AIR); PEEP,BG 5 cm H2O; SITE, BLOOD GAS ARTERIAL LINE; VT, ABG 450 ml
[2022-05-18 12:00] VITALS: BP 98/50
[2022-05-18 12:51] LABS: GLUCOSE,POINT OF CARE 75 MG/DL (70-110)
[2022-05-18] MEDS ORDERED: MetroNIDAZOLE 500 MG/NACL 100 ML IV SCH (13:00)
[2022-05-18 13:13] LABS: ALBUMIN 1.7 g/dL (3.4-5.0); BILIRUBIN,TOTAL 2.5 mg/dL (0.1-1.0); CALCIUM, TOTAL 7.4 mg/dL (8.8-10.5); CREATININE 2.94 mg/dL (0.60-1.30); POTASSIUM 4.1 mmol/L (3.5-5.1)
[2022-05-18] MEDS ORDERED: DEXTROSE 5%-WATER 1,000 ML IV ONE (15:15)
[2022-05-18 16:00] VITALS: BP 99/47
[2022-05-18] MEDS: PIPERACILLIN SODIUM/TAZOBACTAM 2.25 GM in DEXTROSE 5%-WATER 50 ML IV SCH ×2 (17:02→23:36)
[2022-05-18] MEDS ORDERED: 0.9% SODIUM CHLORIDE 10 ML SYRINGE IVP ONE (17:20)
[2022-05-18] MEDS ORDERED: EPINEPHrine 1:10,000 [1 MG/10 ML] SYRINGE IVP ONE (17:20)
[2022-05-18] MEDS ORDERED: SODIUM BICARBONATE [ADULT] 8.4% 50 MEQ/50 ML SYRINGE IVP ONE (17:20)
[2022-05-18 18:07] LABS: ALBUMIN 1.4 g/dL (3.4-5.0); BILIRUBIN,TOTAL 2.7 mg/dL (0.1-1.0); CALCIUM, TOTAL 7.1 mg/dL (8.8-10.5); CREATININE 3.04 mg/dL (0.60-1.30); POTASSIUM 3.9 mmol/L (3.5-5.1); TOTAL PROTEIN, SERUM 5.5 g/dL (6.4-8.2)
[2022-05-18 18:16] LABS: GLUCOSE,POINT OF CARE 95 MG/DL (70-110)
[2022-05-18 19:30] LABS: ABG BASE EXCESS -2.9 mmol/L (-2.0-3.0); ABG CARBOXYHEMOGLOBIN 0.3 % (0.0-1.5); ABG HCO3 22.2 mmol/L (22.0-26.0); ABG METHEMOGLOBIN 0.2 % (0.0-1.5); ABG OXYGEN CONTENT 12.5 mL/dL (15.0-23.0); ABG OXYGEN SATURATION 96.3 % (95.0-98.0); ABG OXYHEMOGLOBIN 95.8 % (94.0-100.0); ABG PCO2 34 mmHg (35-45); ABG PH 7.419 (7.35-7.450); ABG TOTAL HEMOGLOBIN 9.2 G/dL (12.0-18.0); PO2, ARTERIAL BG 75.7 mmHg (79.0-87.0); SOURCE, BLOOD GAS ARTERIAL; TEMPERATURE, FAHRENHEIT, BG 92.2 FAHREN (96.0-98.6)
[2022-05-18 19:36] LABS: ABG A-A DIFF O2 173.6 mmHg (10-20.0); O2 DEVICE,BLOOD GAS VENT (ROOM AIR); SITE, BLOOD GAS ALINE
[2022-05-18 19:37] LABS: PEEP,BG 5 cm H2O; SPONTANEOUS VT, BG 479 ml; VT, ABG 450 ml
[2022-05-18 20:00] VITALS: BP 130/60
[2022-05-18] MEDS: ATORVASTATIN CALCIUM 20 MG TABLET PO SCH (20:26)
[2022-05-18] MEDS: INSULIN GLARGINE,HUM.REC.ANLOG 100 UNITS/ML SQ SCH (20:27)
[2022-05-18 23:56] LABS: GLUCOSE,POINT OF CARE 84 MG/DL (70-110)
[2022-05-19] VITALS: BP 156/64
[2022-05-19 01:07] LABS: ALBUMIN 1.9 g/dL (3.4-5.0); BILIRUBIN,TOTAL 2.8 mg/dL (0.1-1.0); CALCIUM, TOTAL 7.1 mg/dL (8.8-10.5); CREATININE 3.14 mg/dL (0.60-1.30); POTASSIUM 3.9 mmol/L (3.5-5.1); TOTAL PROTEIN, SERUM 5.7 g/dL (6.4-8.2)
[2022-05-19 04:00] VITALS: BP 128/53
[2022-05-19 05:06] LABS: ABG BASE EXCESS -3.3 mmol/L (-2.0-3.0); ABG CARBOXYHEMOGLOBIN 0.5 % (0.0-1.5); ABG METHEMOGLOBIN 0.3 % (0.0-1.5); ABG OXYGEN CONTENT 11.5 mL/dL (15.0-23.0); ABG OXYGEN SATURATION 97.8 % (95.0-98.0); ABG PCO2 33 mmHg (35-45); ABG PH 7.427 (7.35-7.450); ABG TOTAL HEMOGLOBIN 8.3 G/dL (12.0-18.0); PO2, ARTERIAL BG 92.1 mmHg (79.0-87.0); SOURCE, BLOOD GAS ARTERIAL; TEMPERATURE, FAHRENHEIT, BG 94.9 FAHREN (96.0-98.6)
[2022-05-19 05:09] LABS: ABG A-A DIFF O2 157.4 mmHg (10-20.0); O2 DEVICE,BLOOD GAS VENT (ROOM AIR); SITE, BLOOD GAS ALINE
[2022-05-19 05:10] LABS: PEEP,BG 5 cm H2O; SPONTANEOUS VT, BG 537 ml; VT, ABG 450 ml
[2022-05-19] MEDS: PIPERACILLIN SODIUM/TAZOBACTAM 2.25 GM in DEXTROSE 5%-WATER 50 ML IV SCH ×3 (05:37→17:17)
[2022-05-19 05:42] LABS: BASOPHILS % (AUTO) 0.2 % (0.0-2.0); EOSINOPHILS % (AUTO) 0.4 % (1.0-6.0); HEMATOCRIT 22.2 % (41-53); HEMOGLOBIN 7.7 g/dL (13.5-17.5); LYMPHOCYTES # (AUTO) 0.7 K/uL (1.0-4.8); LYMPHOCYTES % (AUTO) 8.4 % (22.0-44.0); MEAN CORPUSCULAR HEMOGLOBIN 31.1 pg (26.0-34.0); MEAN CORPUSCULAR HGB CONC 34.7 G/dL (31.0-37.0); MEAN CORPUSCULAR VOLUME 90 fL (80-100); MONOCYTES # (AUTO) 0.2 K/uL (0.1-1.0); MONOCYTES % (AUTO) 2.8 % (2.0-9.0); NEUTROPHILS # (AUTO) 6.9 K/uL (1.8-7.7); PLATELET COUNT (AUTO) 147 K/uL (150-450); RED BLOOD CELL COUNT(AUTO) 2.48 MIL/uL (4.50-5.90); RED CELL DISTRIBUTION WIDTH 20.1 % (11.5-14.5)
[2022-05-19 05:45] LABS: NEUTROPHILS % (AUTO) 88.2 % (40.0-70.0)
[2022-05-19 05:57] LABS: ALBUMIN 1.6 g/dL (3.4-5.0); BILIRUBIN,TOTAL 2.6 mg/dL (0.1-1.0); CALCIUM, TOTAL 7.1 mg/dL (8.8-10.5); CREATININE 3.15 mg/dL (0.60-1.30); POTASSIUM 3.8 mmol/L (3.5-5.1); TOTAL PROTEIN, SERUM 5.3 g/dL (6.4-8.2)
[2022-05-19 08:00] VITALS: BP 99/44
[2022-05-19] MEDS: ETHYL ALCOHOL 62% ANTISEPTIC NASAL SANITIZER 0.6 ML AMPUL NASAL SCH ×2 (08:57→21:37)
[2022-05-19] MEDS: FUROSEMIDE 20 MG/2 ML VIAL IVP SCH (08:58)
[2022-05-19] MEDS: METOPROLOL TARTRATE 25 MG TABLET PO SCH (08:58)
[2022-05-19] MEDS: MULTIVITAMINS WITH MINERALS, THERAPEUTIC TABLET PO SCH (08:58)
[2022-05-19] MEDS: ALBUMIN HUMAN 25%-25GM/100ML 100 ML IV SCH ×2 (08:58→22:07)
[2022-05-19 10:36] LABS: GLUCOSE,POINT OF CARE 108 MG/DL (70-110)
[2022-05-19 12:00] VITALS: BP 164/66
[2022-05-19 12:32] LABS: ABG BASE EXCESS -2.5 mmol/L (-2.0-3.0); ABG CARBOXYHEMOGLOBIN 1.4 % (0.0-1.5); ABG HCO3 22.6 mmol/L (22.0-26.0); ABG METHEMOGLOBIN 0.3 % (0.0-1.5); ABG OXYGEN CONTENT 9.8 mL/dL (15.0-23.0); ABG OXYGEN SATURATION 95.7 % (95.0-98.0); ABG OXYHEMOGLOBIN 94.1 % (94.0-100.0); ABG PCO2 32 mmHg (35-45); ABG PH 7.443 (7.35-7.450); PO2, ARTERIAL BG 76.9 mmHg (79.0-87.0); SOURCE, BLOOD GAS ARTERIAL; TEMPERATURE, FAHRENHEIT, BG 97.6 FAHREN (96.0-98.6)
[2022-05-19 12:35] LABS: ABG A-A DIFF O2 135.6 mmHg (10-20.0); ABG TOTAL HEMOGLOBIN 7.3 G/dL (12.0-18.0); O2 DEVICE,BLOOD GAS VENTILATOR (ROOM AIR); PEEP,BG 5 cm H2O; SITE, BLOOD GAS ARTERIAL LINE; VT, ABG 450 ml
[2022-05-19 16:00] VITALS: BP 146/77
[2022-05-19] MEDS: INSULIN LISPRO 100 UNITS/ML SQ PRN (17:18)
[2022-05-19 17:46] LABS: APPEARANCE,URINE TURBID (CLEAR); BILIRUBIN,URINE NEGATIVE (NEGATIVE); GLUCOSE, URINE (UA) NEGATIVE (NEGATIVE); KETONES,URINE NEGATIVE (NEGATIVE); LEUKOCYTE ESTERASE ,URINE LARGE (NEGATIVE); NITRATE,URINE NEGATIVE (NEGATIVE); OCCULT BLOOD,URINE LARGE (NEGATIVE); PH,URINE 5.5 (5.0-8.0); PROTEIN,URINE 100-200,SEE CONFIRM mg/dL (NEGATIVE); SPECIFIC GRAVITIY, URINE 1.016 (1.003-1.030); UROBILINOGEN,URINE <=1.0 mg/dL (<=1.0)
[2022-05-19 17:52] LABS: BACTERIA,URINE Few /HPF (None Seen); SQUAMOUS EPITHELIAL CELL,UR Few /LPF (None Seen); SULFOSALICYLIC ACID,URINE 3+ (Negative); WBC,URINE 51-100 /HPF (0-5); YEAST,URINE Many /HPF (None Seen)
[2022-05-19 20:00] VITALS: BP 143/89
[2022-05-19 20:16] LABS: HEMATOCRIT 19.3 % (41-53); HEMOGLOBIN 6.6 g/dL (13.5-17.5)
[2022-05-19 20:35] LABS: GLUCOSE,POINT OF CARE 70 MG/DL (70-110)
[2022-05-19 20:36] LABS: GLUCOSE,POINT OF CARE 130 MG/DL (70-110)
[2022-05-19 20:36] LABS: GLUCOSE,POINT OF CARE 159 MG/DL (70-110)
[2022-05-19 20:36] LABS: GLUCOSE,POINT OF CARE 158 MG/DL (70-110)
[2022-05-19] MEDS: ATORVASTATIN CALCIUM 20 MG TABLET PO SCH (21:37)
[2022-05-19 21:49] LABS: HEMOGLOBIN 6.5 g/dL (13.5-17.5)
[2022-05-19] MEDS: INSULIN GLARGINE,HUM.REC.ANLOG 100 UNITS/ML SQ SCH (21:51)
[2022-05-20] VITALS (15 sets, daily range): BP systolic 136–167; BP diastolic 59–94
[2022-05-20] MEDS ORDERED: SODIUM CHLORIDE 0.9% 250 ML IV ONE ×2 (00:33→20:23)
[2022-05-20] MEDS: PIPERACILLIN SODIUM/TAZOBACTAM 2.25 GM in DEXTROSE 5%-WATER 50 ML IV SCH ×5 (00:48→23:18)
[2022-05-20] MEDS: FentaNYL CIT 1000MCG/0.9% NACL 100 ML IV PRN ×3 (01:51→23:18)
[2022-05-20 05:24] LABS: BASOPHILS % (AUTO) 0.3 % (0.0-2.0); EOSINOPHILS % (AUTO) 1.5 % (1.0-6.0); LYMPHOCYTES # (AUTO) 0.9 K/uL (1.0-4.8); LYMPHOCYTES % (AUTO) 12.1 % (22.0-44.0); MEAN CORPUSCULAR HEMOGLOBIN 30.9 pg (26.0-34.0); MEAN CORPUSCULAR HGB CONC 34.9 G/dL (31.0-37.0); MEAN CORPUSCULAR VOLUME 89 fL (80-100); MONOCYTES # (AUTO) 0.3 K/uL (0.1-1.0); MONOCYTES % (AUTO) 3.9 % (2.0-9.0); NEUTROPHILS % (AUTO) 82.2 % (40.0-70.0); PLATELET COUNT (AUTO) 140 K/uL (150-450); RED BLOOD CELL COUNT(AUTO) 2.22 MIL/uL (4.50-5.90); RED CELL DISTRIBUTION WIDTH 18.3 % (11.5-14.5)
[2022-05-20 05:30] LABS: CALCIUM, TOTAL 7.1 mg/dL (8.8-10.5); CREATININE 3.35 mg/dL (0.60-1.30); MAGNESIUM 1.6 mg/dL (1.80-2.40); POTASSIUM 3.2 mmol/L (3.5-5.1)
[2022-05-20 05:31] LABS: ALBUMIN 1.7 g/dL (3.4-5.0); BILIRUBIN,TOTAL 2.1 mg/dL (0.1-1.0); CALCIUM, TOTAL 7.2 mg/dL (8.8-10.5); CREATININE 3.28 mg/dL (0.60-1.30); POTASSIUM 3.2 mmol/L (3.5-5.1); TOTAL PROTEIN, SERUM 5.3 g/dL (6.4-8.2)
[2022-05-20 05:41] LABS: HEMATOCRIT 19.7 % (41-53); HEMOGLOBIN 6.9 g/dL (13.5-17.5)
[2022-05-20] MEDS: DEXTROSE 50%-WATER 25 GM/50 ML SYRINGE IVP PRN (06:12)
[2022-05-20 06:52] LABS: GLUCOSE,POINT OF CARE 153 MG/DL (70-110)
[2022-05-20 06:52] LABS: GLUCOSE,POINT OF CARE 117 MG/DL (70-110)
[2022-05-20 06:52] LABS: GLUCOSE,POINT OF CARE 38 MG/DL (70-110)
[2022-05-20 08:26] LABS: HEMATOCRIT 19.8 % (41-53); HEMOGLOBIN 6.8 g/dL (13.5-17.5)
[2022-05-20] MEDS ORDERED: SODIUM CHLORIDE 0.9% 500 ML IV ONE ×3 (08:42→20:23)
[2022-05-20] MEDS: ETHYL ALCOHOL 62% ANTISEPTIC NASAL SANITIZER 0.6 ML AMPUL NASAL SCH ×2 (08:45→20:26)
[2022-05-20] MEDS: MULTIVITAMINS WITH MINERALS, THERAPEUTIC TABLET PO SCH (08:45)
[2022-05-20 09:21] LABS: GLUCOSE,POINT OF CARE 72 MG/DL (70-110)
[2022-05-20 09:21] LABS: GLUCOSE,POINT OF CARE 99 MG/DL (70-110)
[2022-05-20] MEDS: DEXTROSE 5%-WATER 1,000 ML IV SCH (14:44)
[2022-05-20 15:32] LABS: HEMATOCRIT 22.4 % (41-53); HEMOGLOBIN 7.8 g/dL (13.5-17.5)
[2022-05-20 20:01] LABS: GLUCOSE,POINT OF CARE 72 MG/DL (70-110)
[2022-05-20 20:01] LABS: GLUCOSE,POINT OF CARE 134 MG/DL (70-110)
[2022-05-20] MEDS: ATORVASTATIN CALCIUM 20 MG TABLET PO SCH (20:26)
[2022-05-20] MEDS ORDERED: PANTOPRAZOLE SODIUM 40 MG/VIAL IVP SCH (21:00)
[2022-05-20 21:37] LABS: HEMATOCRIT 24.7 % (41-53); HEMOGLOBIN 8.5 g/dL (13.5-17.5)
[2022-05-21] VITALS (9 sets, daily range): BP systolic 130–186; BP diastolic 55–107
[2022-05-21 03:21] LABS: GLUCOSE,POINT OF CARE 189 MG/DL (70-110)
[2022-05-21] MEDS: FentaNYL CIT 1000MCG/0.9% NACL 100 ML IV PRN ×3 (04:35→16:39)
[2022-05-21 05:41] LABS: BASOPHILS % (AUTO) 0.6 % (0.0-2.0); EOSINOPHILS % (AUTO) 1.2 % (1.0-6.0); HEMATOCRIT 25.8 % (41-53); LYMPHOCYTES # (AUTO) 0.9 K/uL (1.0-4.8); LYMPHOCYTES % (AUTO) 11.1 % (22.0-44.0); MEAN CORPUSCULAR HEMOGLOBIN 31.1 pg (26.0-34.0); MEAN CORPUSCULAR VOLUME 89 fL (80-100); MONOCYTES # (AUTO) 0.3 K/uL (0.1-1.0); MONOCYTES % (AUTO) 3.9 % (2.0-9.0); NEUTROPHILS # (AUTO) 6.5 K/uL (1.8-7.7); NEUTROPHILS % (AUTO) 83.2 % (40.0-70.0); PLATELET COUNT (AUTO) 155 K/uL (150-450)
[2022-05-21 05:56] LABS: ALBUMIN 1.6 g/dL (3.4-5.0); BILIRUBIN,TOTAL 1.8 mg/dL (0.1-1.0); CALCIUM, TOTAL 7.5 mg/dL (8.8-10.5); CREATININE 3.24 mg/dL (0.60-1.30); POTASSIUM 3.2 mmol/L (3.5-5.1); TOTAL PROTEIN, SERUM 5.8 g/dL (6.4-8.2)
[2022-05-21] MEDS: PIPERACILLIN SODIUM/TAZOBACTAM 2.25 GM in DEXTROSE 5%-WATER 50 ML IV SCH ×2 (06:08→12:21)
[2022-05-21 06:26] LABS: GLUCOSE,POINT OF CARE 219 MG/DL (70-110)
[2022-05-21 07:20] LABS: MAGNESIUM 1.8 mg/dL (1.80-2.40); PHOSPHORUS 4.9 mg/dL (2.5-4.9)
[2022-05-21] MEDS: MORPHINE SULFATE 2 MG/ML SYRINGE IVP PRN (08:22)
[2022-05-21] MEDS: ETHYL ALCOHOL 62% ANTISEPTIC NASAL SANITIZER 0.6 ML AMPUL NASAL SCH (08:22)
[2022-05-21] MEDS: MULTIVITAMINS WITH MINERALS, THERAPEUTIC TABLET PO SCH (08:33)
[2022-05-21] MEDS ORDERED: PANTOPRAZOLE SODIUM 40 MG/VIAL IVP SCH (09:00)
[2022-05-21] MEDS ORDERED: POTASSIUM CHL 10 MEQ/WATER 50 ML IV ONE (09:45)
[2022-05-21] MEDS ORDERED: NiCARDipine HCL 25 MG in DEXTROSE 5%-WATER 240 ML IV PRN (12:15)
[2022-05-21 13:01] LABS: GLUCOSE,POINT OF CARE 183 MG/DL (70-110)
[2022-05-21] MEDS: DEXTROSE 5%-WATER 1,000 ML IV SCH (14:03)
[2022-05-21] MEDS ORDERED: LORazepam 2 MG/ML VIAL IVP PRN (15:45)
[2022-05-21] MEDS ORDERED: MORPHINE SULFATE 100 MG/NS/PF 100 ML IV PRN (15:45)
[2022-05-21] MEDS ORDERED: ONDANSETRON HCL 4 MG/2 ML VIAL IVP PRN (15:45)
[2022-05-21] MEDS ORDERED: DiphenhydrAMINE HCL 50 MG/ML VIAL IVP PRN (15:45)
[2022-05-22] VITALS: BP 109/50
== END 2022-05-22 02:00 | DRG 710 ==
LOC: EMS 13:58 → ICU 17:54 → 5N 05-05 18:47 → ICU 05-15 07:55 → 5S 05-16 22:24 → ICU 05-18 00:40
PROVIDERS: ADMIT Internal Medicine; ATTEND Internal Medicine
PROC: 0PBC0ZZ Excision of Right Humeral Head, Open Approach (ICD-10-PCS; 2022-05-04)
PROC: 30233N1 Transfusion of Nonautologous Red Blood Cells into Peripheral Vein, Percutaneous Approach (ICD-10-PCS; 2022-05-04)
PROC: 05HY33Z Insertion of Infusion Device into Upper Vein, Percutaneous Approach (ICD-10-PCS; 2022-05-08)
PROC: 0MB10ZZ Excision of Right Shoulder Bursa and Ligament, Open Approach (ICD-10-PCS; 2022-05-15)
PROC: 0PBC0ZZ Excision of Right Humeral Head, Open Approach (ICD-10-PCS; 2022-05-15)
PROC: 5A1945Z Respiratory Ventilation, 24-96 Consecutive Hours (ICD-10-PCS; principal; 2022-05-18)
PROC: 0BH17EZ Insertion of Endotracheal Airway into Trachea, Via Natural or Artificial Opening (ICD-10-PCS; 2022-05-18)
PROC: 04HY32Z Insertion of Monitoring Device into Lower Artery, Percutaneous Approach (ICD-10-PCS; 2022-05-18)
PROC: 4A133B1 Monitoring of Arterial Pressure, Peripheral, Percutaneous Approach (ICD-10-PCS; 2022-05-18)
PROC: 4A133J1 Monitoring of Arterial Pulse, Peripheral, Percutaneous Approach (ICD-10-PCS; 2022-05-18)
DX: A41.01 Sepsis due to Methicillin susceptible Staphylococcus aureus (principal); J96.01 Acute respiratory failure with hypoxia; N17.0 Acute kidney failure with tubular necrosis; R65.21 Severe sepsis with septic shock; J69.0 Pneumonitis due to inhalation of food and vomit; G93.40 Encephalopathy, unspecified; M00.9 Pyogenic arthritis, unspecified; I46.9 Cardiac arrest, cause unspecified; S42.291K Other displaced fracture of upper end of right humerus, subsequent encounter for fracture with nonunion; I13.0 Hypertensive heart and chronic kidney disease with heart failure and stage 1 through stage 4 chronic kidney disease, or unspecified chronic kidney disease; I50.22 Chronic systolic (congestive) heart failure; E43 Unspecified severe protein-calorie malnutrition; D63.8 Anemia in other chronic diseases classified elsewhere; E87.1 Hypo-osmolality and hyponatremia; E11.22 Type 2 diabetes mellitus with diabetic chronic kidney disease; E78.5 Hyperlipidemia, unspecified; E11.51 Type 2 diabetes mellitus with diabetic peripheral angiopathy without gangrene; E87.6 Hypokalemia; E11.40 Type 2 diabetes mellitus with diabetic neuropathy, unspecified; E11.65 Type 2 diabetes mellitus with hyperglycemia; F03.90 Unspecified dementia, unspecified severity, without behavioral disturbance, psychotic disturbance, mood disturbance, and anxiety; I35.0 Nonrheumatic aortic (valve) stenosis; I42.9 Cardiomyopathy, unspecified; K74.60 Unspecified cirrhosis of liver; L02.413 Cutaneous abscess of right upper limb; M60.011 Infective myositis, right shoulder; S40.011A Contusion of right shoulder, initial encounter; X58.XXXD Exposure to other specified factors, subsequent encounter; N18.4 Chronic kidney disease, stage 4 (severe); J91.8 Pleural effusion in other conditions classified elsewhere; M71.20 Synovial cyst of popliteal space [Baker], unspecified knee; Z20.822 Contact with and (suspected) exposure to COVID-19; Z79.4 Long term (current) use of insulin; Z79.84 Long term (current) use of oral hypoglycemic drugs; Z91.19 Patient's noncompliance with other medical treatment and regimen; Z68.26 Body mass index [BMI] 26.0-26.9, adult; Z79.899 Other long term (current) drug therapy
CPT/HCPCS: 36245; 36569; 36600; 71045; 73206; 73221; 76770; 76937; 80048; 80053; 81001; 81002; 82043; 82271; 82570; 82805; 82962; 83036; 83605; 83690; 83735; 83880; 84100; 84134; 84145; 84156; 84166; 84295; 84300; 84484; 84540; 85014; 85018; 85025; 85384; 85610; 85730; 86140; 86850; 86900; 86901; 86923; 87040; 87070; 87075; 87081; 87086; 87101; 87186; 87205; 87449; 87899; 88305; 88307; 88311; 92950; 93005; 93306; 93970; 94002; 94003; 97162; 97167; 97530; 97535; 99291; C9113; G0238; G0378; J0171; J0690; J1100; J1200; J1630; J1644; J1815; J1940; J2270; J2405; J2543; J2704; J3010; J3370; J3480; J3490; J7030; J7040; J7042; J7050; J7060; J7120; P9016; P9046; Q9967; 36415-L1; 36415-TC; Z7610